=== PATIENT | male | born 1960 | race Caucasian/White ===

== ENCOUNTER 2017-05-28 16:47 | Emergency (ER) | payer OTHER ==
[~2017-05-28] VITALS: Ht 180.3 cm; Wt 90.9 kg
[2017-05-28 17:04] VITALS: BP 169/108; PULSE 79; RESP 16; O2SAT 96
[2017-05-28] MEDS ORDERED: Dexamethasone 10 mg/mL Inj IM ONE (17:45)
--- NOTE | 2017-05-28 21:06 | ED.REPORT ---
HPI-General Illness Date of Service May 28, 2017 ED Provider: Fidencio Pineda MD Pt is a 57 year old male with a hx of an L4-L5 laminectomy 10 years ago presenting to the ED complaining of 9/10 right low back pain. About 2 years ago he began having right sided lower back pain, gradually worsening and radiating down his right leg and groin. Yesterday, he went to and was given muscle relaxers, which he has taken without relief. Associated symptoms include numbness in his right leg. Denies fever, chills, CP, SOB, abd pain, constipation , headache, problems speaking, vision changes, bowel or bladder incontinence. Denies any recent trauma or injury. Nursing Notes Stated Complaint: BACK PAIN Chief Complaint: Back Pain or Injury Nursing Notes Reviewed: Yes Allergies: Coded Allergies: No Known Allergies (Unverified , 05/28/17) General Time Seen by MD: 17:18 Chief Complaint Back pain Hx Obtained From: Patient, Spouse Arrived By: Walk-in Sudden in Onset?: No Onset Occurred: Yesterday Symptom Duration: Since onset Quality: Aching, Painful, Sharp Severity: Current: Pain level 9 out of 10 Severity: Maximum: Severe Recent Healthcare: No recent hospitalization, Recent doctor visit Similar Sx Previous: Yes Past Medical History Past Medical History healthy Past Surgical History L4-L5 laminectomy Smoking History Current Every Day Smoker Social History Alcohol Use: "Social" Ambulatory Status Independent Review of Systems Full Review of Systems Constitutional: Denies: Chills, Fever Eyes: Denies: Blurred bilateral, Visual loss bilateral Ears / Nose / Throat: Denies: Throat swelling Respiratory: Denies: Shortness of breath Cardiovascular: Denies: Chest pain GI: Denies: Abdominal pain, Constipation, Nausea, Vomiting Musculoskeletal: Reports: Back pain, Extremity pain Skin: Denies Itching, Denies Rash Neurologic: Reports: Numbness, Denies: Abnormal movement, Bladder dysfunction, Bowel dysfunction, Headache, Slurred speech, Unable to speak, Vision change Psychiatric: Denies: Agitation Complete sys rev & neg: except as marked. Physical Exam Nursing note and vitals reviewed. Constitutional: Well-developed, well-nourished. Not diaphoretic. Head: Normocephalic and atraumatic. Mouth/Throat: Oropharynx is clear and moist. No oropharyngeal exudate. Eyes: EOM are normal. Pupils are equal, round, and reactive to light. Neck: Supple, no tracheal deviation. Cardiovascular: Normal rate, regular rhythm. Equal and intact distal pulses throughout. Pulmonary/Chest: Effort normal and breath sounds normal. No respiratory distress. Abdominal: Soft. No distension. There is no tenderness, rebound, or guarding. Bowel sounds present. Musculoskeletal: Range of motion grossly intact, moving all extremities. No edema or tenderness appreciated. Neurological: AOx3. Grossly nonfocal exam. Strength and sensation intact and equal to bilateral upper and lower extremities. No perineal anesthesia. Skin: Warm and dry, no rashes or pallor appreciated. Psychiatric: Appropriate mood and affect. Behavior appears normal. Back: No significant point tenderness in thoracic, lumbar or cervical spine. Vital Signs Vital Signs Date Time Temp Pulse Resp B/P Pulse Ox O2 Delivery O2 Flow Rate FiO2 05/28/17 22:10 78 145/103 05/28/17 17:04 36.8 79 16 169/108 96 Room Air Initial VS: Reviewed Re-Eval/Medical Decision Med Decision/Clinical Course In summary, 49-year-old male with a PMHx notable for back pain with laminectomy years ago presenting to the ED for evaluation of back pain that started getting worse over the past several days. DDx broad and includes lumbosacral strain, degenerative disc disease, cauda equina syndrome, epidural abscess, AAA, nephrolithiasis. No bowel/bladder incontinence or urinary retention, no saddle anesthesia, unremarkable exam with equal strength to bilateral lower extremities and grossly intact sensation to light touch. Afebrile, non-toxic appearing, no history of IV drug abuse. Patient denies abdominal pain and has a benign abdominal exam. No CVA tenderness or hematuria. Patient does have a history of lower back pain; current presentation seems most consistent with an acute exacerbation/sciatica vs lumbosacral strain. Patient given 30 mg of Toradol IM as well as Decadron here in the ED with some improvement in symptoms. Given above, reasonable to discharge home w/ PCP f/u as soon as able to further discuss strategies to minimize pain and discomfort. Very careful return precautions were discussed, including to return immediately if any bowel or bladder incontinence, urinary retention, fever, or weakness. Patient agreeable to the plan as stated, no further questions. Time of Eval: 21:20 Patient Status: Condition improved Re-Evaluation/Progress Note: Discussed plan for discharge. Pt understands and agrees with plan. Counseled Regarding: Diagnosis, Lab results, Need for follow-up, When/why to return to ED Discharge & Departure Primary Impression: Sciatica Laterality: right Qualified Code: M54.31 - Sciatica, right side Additional Impression: Back strain Encounter type: initial encounter Qualified Code: S39.012A - Strain of muscle, fascia and tendon of lower back, initial encounter Disposition: Home Discharge Condition All VS Reviewed: Yes Condition: Improved Patient Instructions: Low Back Strain (ED), Sciatica (ED) Additional Instructions: Thank you for allowing us to be a part of your care in the ED today. It seems that you are experiencing sciatic nerve pain today. Follow up with the neurosurgeon I have referred you to. Please schedule a follow up appointment with your primary care physician tomorrow for a recheck. Use 400 mg Ibuprofen every 6-8 hours as directed for pain. Please return to the emergency department for any new or worsening symptoms including any nausea, vomiting, abdominal pain, bladder or bowel incontinence, urinary retention, shortness of breath, chest pain, one sided weakness/numbness , fevers, or chills, or if there's anything else of concern to you. Dr. Alfaro at [facility] in [place]. Referrals: [facility] Mayela Attestation Portions of this note were transcribed by Briana Alejandre. I, Dr. Pineda personally performed the history, physical exam and medical decision-making; I reviewed and confirmed the accuracy of the information in the transcribed note. Signed by: Mayela Edgar, 05/28/2017. copies to: [facility] Fidencio Pineda MD May 28, 2017 21:06 BRIANA ALEJANDRE May 28, 2017 21:15
[2017-05-28 22:10] VITALS: BP 145/103; PULSE 78
== END 2017-05-28 22:12 | disposition home or self-care (01) ==
LOC: SED 16:47
DX: S39.012A Strain of muscle, fascia and tendon of lower back, initial encounter (principal); X50.9XXA Other and unspecified overexertion or strenuous movements or postures, initial encounter; Y93.89 Activity, other specified; Y92.89 Other specified places as the place of occurrence of the external cause; Y99.8 Other external cause status; M54.31 Sciatica, right side; F17.200 Nicotine dependence, unspecified, uncomplicated; Z98.890 Other specified postprocedural states
CPT/HCPCS: 96372; 99284; J1100; J1885